=== PATIENT | male | born 1970 | race Two or more races ===

== ENCOUNTER 2018-08-12 06:56 | Emergency (ER) | payer MEDICAID, OTHER ==
[~2018-08-12] VITALS: Ht 167.6 cm; Wt 77.1 kg
[~2018-08-12 06:56] MED LIST: ACYCLOVIR10 GM MC; ACYCLOVIR200 MG ORAL; ACYCLOVIR800 MG ORAL; ARTIFICIAL TEAR15 ML BOTH EYES; CYCLOBENZAPRINE10 MG ORAL; PREDNISONE10 MG ORAL; PREDNISONE20 MG ORAL; TYLENOL650 MG/20. ORAL
[2018-08-12 06:59] VITALS: BP 139/95
[2018-08-12] MEDS ORDERED: NORVASC5 MG ORAL (07:03)
[2018-08-12] MEDS ORDERED: Ketorolac 60mg Inj IM ONE (07:15)
--- NOTE | 2018-08-12 07:18 | Emergency Room Report ---
History of Present Illness General Chief Complaint: Upper Extremity Injury Source: Patient Present Illness HPI Patient is a 47-year-old male presented after increased right-sided chest and upper extremity pain. Pain is worse with movement. He reports having some symptoms for several months however this is gotten worse since last night. Patient denies any fever. He reports having recent travel to [place]. Denies any changes with respiration. Patient states that he had been having some discomfort primarily to the dorsal aspect of his wrist forearm and shoulder. He denies any lower extremity pain. Reports having some pain to his neck as well as to his anterior chest. He patient is right-hand dominant. 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 Patient states is not a smoker. Allergies: Coded Allergies: No Known Allergies (Unverified , 05/13/16) Patient History Past Medical History: see triage record Reviewed Nursing Documentation: PMH: Agreed; PSxH: Agreed Nursing Documentation-PMH Past Medical History: No History, Except For Hx Hypertension: Yes Hx Cerebrovascular Accident: Yes - 2016 Review of Systems All Other Systems: negative except mentioned in HPI Physical Exam Vital Signs Date Time Temp Pulse Resp B/P (MAP) Pulse Ox O2 Delivery O2 Flow Rate FiO2 08/12/18 06:59 98.2 90 16 139/95 97 Room Air Sp02 EP Interpretation: reviewed, normal General Appearance: normal inspection, well appearing, no apparent distress, alert, GCS 15 Head: atraumatic ENT: normal ENT inspection, hearing grossly normal, normal voice Neck: normal inspection, full range of motion, supple, no bony tend Respiratory: normal inspection, lungs clear, normal breath sounds, no respiratory distress, no retraction, no wheezing Cardiovascular #1: regular rate, rhythm, no edema Gastrointestinal: normal inspection, normal bowel sounds, non tender, soft, no guarding, no hernia Genitourinary: no CVA tenderness Musculoskeletal: normal inspection, back normal, normal range of motion, other - right extensor forearm tenderness Neurologic: normal inspection, alert, responsive, speech normal Psychiatric: normal inspection, judgement/insight normal, mood/affect normal Skin: normal inspection, normal color, no rash Medical Decision Making Diagnostic Impression: Primary Impression: Cervical radiculopathy ER Course . Patient presented for right-sided upper extremity pain. Differential diagnosis include was not limited to fracture, dislocation, sprain, vascular insufficiency among others. Because of complexity of patient's case imaging studies were ordered. Patient was noted to have symptoms which are exacerbated by palpation. Patient shows no evidence of any neurologic deficit however given the patient's distribution of symptoms CT of the head and neck was ordered. CT of cervical spine read by radiology showed multilevel degenerative changes with mild stenosis CT of head read by radiology showed no evidence of acute intracranial pathology. Patient is given pain medications. He was advised to follow-up with his primary care physician for reevaluation and possible MRI. Patient does not show any evidence of vascular compromise and does not appear to have any evidence of myocardial infarction. EKG interpreted by me showed normal sinus rhythm without acute ST or T wave changes. EKG Diagnostic Results Rate: normal - 74 Rhythm: NSR ST Segments: no acute changes Last Vital Signs Date Time Temp Pulse Resp B/P (MAP) Pulse Ox O2 Delivery O2 Flow Rate FiO2 08/12/18 06:59 98.2 90 16 139/95 97 Room Air Status: improved Disposition: HOME, SELF-CARE Condition: Stable Scripts Cyclobenzaprine Hcl* (FLEXERIL*) 10 Mg Tablet 10 MG ORAL THREE TIMES A DAY, #20 TAB Prov: Geovanny August MD 08/12/18 Ibuprofen* (MOTRIN*) 600 Mg Tablet 600 MG ORAL Q8H PRN for For Pain, #30 TAB 0 Refills Prov: Geovanny August MD 08/12/18 Referrals: NON PHYSICIAN (PCP) Geovanny August MD Aug 12, 2018 07:18
--- NOTE | 2018-08-12 07:45 | NUR ---
ED Nurse Note: Pt. AAOx4. ambulatory. Pt. c/o R ar pain X 1 month and has gotten worse for the last 2 weeks. deniea any pain /trauma
--- NOTE | 2018-08-12 08:13 | NUR ---
ED Nurse Note: pt. taken to radiology
--- NOTE | 2018-08-12 08:20 | NUR ---
ED Nurse Note: pt. returned from radiology
--- NOTE | 2018-08-12 08:51 | Diagnostic Imaging Report ---
EXAM: CT Head Without Intravenous Contrast CLINICAL HISTORY: 47-year-old male with pain with numbness and tingling to right hand 4 weeks. TECHNIQUE: Axial computed tomography images of the head/brain without intravenous contrast. Coronal reformatted images were created and reviewed. CTDI is 70.38 mGy and DLP is 1242.15 mGy-cm. One or more of the following dose reduction techniques were used: automated exposure control, adjustment of the mA and/or kV according to patient size, use of iterative reconstruction technique. COMPARISON: 05/13/2016. FINDINGS: Brain: Unremarkable and unchanged. Ventricles: Unremarkable and stable. Bones/joints: Unremarkable. Soft tissues: Unremarkable. Sinuses: Unremarkable as visualized. Mastoid air cells: Unremarkable as visualized. IMPRESSION: Unremarkable and unchanged head CT.
--- NOTE | 2018-08-12 08:59 | Diagnostic Imaging Report ---
EXAM: CT Cervical Spine Without Intravenous Contrast CLINICAL HISTORY: 47-year-old male with pain with numbness/tingling to right hand 4 weeks. TECHNIQUE: Axial computed tomography images of the cervical spine without intravenous contrast. Coronal and sagittal reformatted images were created and reviewed. CTDI is 16.62 mGy and DLP is 319.76 mGy-cm. One or more of the following dose reduction techniques were used: automated exposure control, adjustment of the mA and/or kV according to patient size, use of iterative reconstruction technique. COMPARISON: None. FINDINGS: Vertebrae: No acute fracture or other osseous abnormality. Discs/spinal canal/neural foramina: Multilevel mild disc degeneration. Mild facet joint degeneration especially on the left at C2-3. Multilevel shallow midline dorsal disc bulges/protrusions, the largest at C6-7, likely resulting in mild canal stenosis. No obvious significant neural foraminal stenosis. Soft tissues: Grossly unremarkable. IMPRESSION: Multilevel mild disc degeneration, with associated shallow midline dorsal disc bulges/protrusions, greatest at C6-7, likely resulting in mild spinal canal stenosis; no obvious disc extrusion or significant foraminal stenosis/nerve root impingement, allowing for technique. If more sensitive imaging evaluation is desired, suggest MRI, if possible.
[2018-08-12] MEDS ORDERED: IBUPROFEN600 MG ORAL (09:25)
[2018-08-12] MEDS ORDERED: CYCLOBENZAPRINE10 MG ORAL (09:25)
[2018-08-12 09:30] VITALS: BP 139/95
--- NOTE | 2018-08-12 09:30 | NUR ---
ED Nurse Note: Patient is being discharged from medical care. Awake, alert and oriented x4. After care instructions were given. Patient verbalized understanding of After care instructions. All medical devices such as ID band were removed. Patient ambulated out with all personal belongings with steady gait.
--- NOTE | 2018-08-12 11:05 | Diagnostic Imaging Report ---
EXAM: XR Chest, 1 View CLINICAL HISTORY: PAIN TECHNIQUE: Frontal view of the chest. COMPARISON: Chest x-ray dated 05/13/16 FINDINGS: Lungs: Unremarkable. The lungs appear clear. No focal consolidation. Pleural space: Unremarkable. The costophrenic angles are sharp. No visible pneumothorax. Heart: Unremarkable. No cardiomegaly. Mediastinum: Unremarkable. Bones/joints: Unremarkable. IMPRESSION: No acute findings.
== END 2018-08-12 09:30 | disposition home or self-care (01) ==
LOC: EMR 07:15
DX: M54.12 Radiculopathy, cervical region (principal); I10 Essential (primary) hypertension; Z86.73 Personal history of transient ischemic attack (TIA), and cerebral infarction without residual deficits; R07.9 Chest pain, unspecified
CPT/HCPCS: 70450; 71045; 72125; 93005; 99284

== ENCOUNTER 2019-07-15 18:23 | Emergency (ER) | payer OTHER ==
[~2019-07-15] VITALS: Ht 160 cm; Wt 72.6 kg
[~2019-07-15 18:23] MED LIST changes: +IBUPROFEN600 MG ORAL; +NORVASC5 MG ORAL
[2019-07-15] MEDS ORDERED: NKM (18:32)
--- NOTE | 2019-07-15 18:42 | NUR ---
ED Nurse Note:pt. came s/p injury to lower back at work on monday, skin is intact, ambulatory with steady gait
[2019-07-15 18:58] VITALS: BP 146/87
--- NOTE | 2019-07-15 19:10 | NUR ---
ED Nurse Note: pt is at CT
--- NOTE | 2019-07-15 19:15 | NUR ---
ED Nurse Note: pt returned from CT
--- NOTE | 2019-07-15 19:27 | Diagnostic Imaging Report ---
Indications: Trauma, head pain Technique: Spiral acquisitions obtained through the brain. Angled axial and coronal 5 x 5 mm slices were reconstructed. Total dose length product 1300 mGycm. CTDI vol(s) 62 mGy. Dose reduction achieved using automated exposure control Comparison: 08/12/2018 Findings: No acute intracranial hemorrhage or edema. No mass effect nor midline shift. Normal size ventricles and extra axial CSF spaces. Normal brandon-white differentiation. Intact calvarium. Visualized orbits and sinuses are unremarkable. The mastoids are clear. There is no significant interim change Impression: Negative This agrees with the preliminary interpretation provided overnight by [facility] service. The CT scanner at [facility] is accredited by the [employer] and the scans are performed using protocols designed to limit radiation exposure to as low as reasonably achievable to attain images of sufficient resolution adequate for diagnostic evaluation.
--- NOTE | 2019-07-15 19:36 | Emergency Room Report ---
History of Present Illness General Chief Complaint: Lower Back Pain or Injury Source: Patient Present Illness HPI 48-year-old male with no significant past medical history here complaining of headache and dizziness and low back pain after falling at work. Patient reports that he missed a step and he landed on his back and back of his head. Denies loss of consciousness, nausea vomiting. Reports that the incident happened earlier this morning. Has not taken medication for symptom relief. Denies nausea vomiting abdominal pain, chest pain, shortness of breath, tingling and numbness. Rating the pain in head 7 out of 10 without radiation. Rating pain in the lower back 7 out of 10 without radiation, denying saddle paresthesia, urinary or bowel incontinence. Patient has full range of motion of his lower back. Allergies: Coded Allergies: No Known Allergies (Unverified , 05/13/16) Patient History Past Medical History: see triage record Past Surgical History: unable to obtain Pertinent Family History: none Immunizations: UTD Reviewed Nursing Documentation: PMH: Agreed; PSxH: Agreed Nursing Documentation-PMH Past Medical History: No History, Except For Hx Hypertension: Yes Hx Cerebrovascular Accident: Yes - 2017 Review of Systems All Other Systems: negative except mentioned in HPI Physical Exam Vital Signs Date Time Temp Pulse Resp B/P (MAP) Pulse Ox O2 Delivery O2 Flow Rate FiO2 07/15/19 18:24 98.4 73 17 146/87 (106) 98 Room Air Sp02 EP Interpretation: reviewed, normal General Appearance: no apparent distress, alert, GCS 15, non-toxic Head: normocephalic, atraumatic Eyes: bilateral eye normal inspection, bilateral eye PERRL ENT: hearing grossly normal, normal pharynx, no angioedema, normal voice Neck: full range of motion, supple, thyroid normal, no meningismus, no bony tend, no carotid bruits, supple/symm/no masses Respiratory: chest non-tender, lungs clear, normal breath sounds, no rhonchi, no retraction, no wheezing, speaking full sentences Cardiovascular #1: regular rate, rhythm, no edema, no murmur, normal capillary refill Cardiovascular #2: 2+ carotid (R), 2+ carotid (L), 2+ radial (R), 2+ radial (L) , 2+ dorsalis pedis (R), 2+ dorsalis pedis (L) Gastrointestinal: normal bowel sounds, non tender, soft, non-distended, no guarding, no rebound Rectal: deferred Genitourinary: no CVA tenderness Musculoskeletal: back normal, normal range of motion, no calf tenderness, pelvis stable, gait/station normal, non-tender Neurologic: alert, motor strength/tone normal, oriented x3, sensory intact, responsive, speech normal Psychiatric: judgement/insight normal, memory normal, mood/affect normal, no suicidal/homicidal ideation Skin: no rash Lymphatic: no adenopathy Medical Decision Making PA Attestation All diagnoses and treatment plans were reviewed and discussed with my supervising physician Dr. Plata Diagnostic Impression: Primary Impression: Head contusion Additional Impression: Lumbar contusion ER Course 48-year-old male with no significant past medical history here complaining of headache and dizziness and low back pain after falling at work. Patient reports that he missed a step and he landed on his back and back of his head. Denies loss of consciousness, nausea vomiting. Reports that the incident happened earlier this morning. Has not taken medication for symptom relief. Denies nausea vomiting abdominal pain, chest pain, shortness of breath, tingling and numbness. Rating the pain in head 7 out of 10 without radiation. Rating pain in the lower back 7 out of 10 without radiation, denying saddle paresthesia, urinary or bowel incontinence. Patient has full range of motion of his lower back. Ddx considered but are not limited to: cerebral hematoma, concussion, skull fracture, head contusion, lumbar fracture, lumbar contusion, lumbar sprain Vital signs: are WNL, pt. is afebrile H&PE are most consistent with: Head contusion, lumbar contusion ORDERS: head CT no contrast, L-spine x-ray, Motrin, Robaxin, lidocaine patch ED INTERVENTIONS: None required at this time. DISCHARGE: At this time pt. is stable for d/c to home. Will provide printed patient care instructions, and any necessary prescriptions. Care plan and follow up instructions have been discussed with the patient prior to discharge. Patient to follow-up with her primary care provider, if worsening symptoms return to the emergency room Other X-Ray Diagnostic Results Other X-Ray Diagnostic Results : X-Ray ordered: L-spine # of Views/Limited Vs Complete: 3 View Indication: Pain EP Interpretation: Yes PA Xray: Interpretation reviewed, by supervising MD, and agrees with findings. Interpretation: no dislocation, no soft tissue swelling, no fractures Impression: No acute disease Electronically Signed by: Uvaldo López PA-C CT/MRI/US Diagnostic Results CT/MRI/US Diagnostic Results : Imaging Test Ordered: Head CT no contrast Impression No intracranial bleed, no skull fracture Last Vital Signs Date Time Temp Pulse Resp B/P (MAP) Pulse Ox O2 Delivery O2 Flow Rate FiO2 07/15/19 18:58 98.4 17 146/87 98 Room Air 07/15/19 18:24 73 Disposition: HOME, SELF-CARE Condition: Stable Scripts Lidocaine Patch* (Lidoderm Patch*) 1 Each Adh..patch 1 PATCH TOPIC DAILY, #7 PATCH 0 Refills Patch(es) may remain in place for up to 12 hours in any 24-hour period. Prov: Uvaldo Marcial 07/15/19 Methocarbamol* (ROBAXIN-500*) 500 Mg Tablet 500 MG ORAL TID PRN for For Pain, #15 TAB 0 Refills Prov: Uvaldo Marcial 07/15/19 Ibuprofen* (MOTRIN*) 600 Mg Tablet 600 MG ORAL Q8H PRN for For Pain, #30 TAB 0 Refills Prov: Uvaldo Marcial 07/15/19 Patient Instructions: Facial or Scalp Contusion, [id number], Low Back Sprain With Rehab-Sports[facility] Additional Instructions: Take medication as directed, follow-up with your primary care provider, if worsening symptoms return to the emergency room Uvaldo Marcial Jul 15, 2019 19:36
[2019-07-15] MEDS ORDERED: IBUPROFEN600 MG ORAL (19:37)
[2019-07-15] MEDS ORDERED: ROBAXIN-500MG ORAL (19:37)
[2019-07-15] MEDS ORDERED: LIDODERM700 M1 TOPIC (19:37)
--- NOTE | 2019-07-15 19:40 | NUR ---
ER DISCHARGE NOTE: Patient is cleared to be discharged per ERMD, pt is aox4, on room air, with stable vital signs. pt was given dc and prescription instructions, pt was able to verbalize understanding, pt id band removed. pt is able to ambulate with steady gait. pt took all belongings.
[2019-07-15 19:42] VITALS: BP 135/86
--- NOTE | 2019-07-16 13:52 | Diagnostic Imaging Report ---
Indication: Trauma, pain Technique: 3 views of the lumbar spine Comparison: None Findings: Bony alignment is normal. Vertebral body heights are preserved. There is degenerative disc narrowing at L4-5 and L5-S1. There are anterior osteophytes at multiple levels. No acute fractures. No dislocations. Pedicles are intact. The sacral arches are preserved. Sacroiliac joint spaces are preserved. The soft tissues are unremarkable Impression: Mild degenerative changes, as described No acute bony trauma
== END 2019-07-15 19:40 | disposition home or self-care (01) ==
LOC: EMR 19:35
DX: S00.93XA Contusion of unspecified part of head, initial encounter (principal); S30.0XXA Contusion of lower back and pelvis, initial encounter; W19.XXXA Unspecified fall, initial encounter; Y92.9 Unspecified place or not applicable; Y99.0 Civilian activity done for income or pay; I10 Essential (primary) hypertension; Z86.73 Personal history of transient ischemic attack (TIA), and cerebral infarction without residual deficits
CPT/HCPCS: 70450; 72020; 99284

== ENCOUNTER 2019-10-23 14:03 | Outpatient (CLI) | payer OTHER ==
[~2019-10-23] VITALS: Ht 157.5 cm; Wt 76.7 kg
[~2019-10-23 14:03] MED LIST changes: +LIDODERM700 M1 TOPIC; +NKM; +ROBAXIN-500MG ORAL
[2019-10-23 14:23] VITALS: BP 131/83
--- NOTE | 2019-10-23 15:45 | Consultation ---
DATE OF CONSULTATION: 10/23/2019 CONSULTING PHYSICIAN: Ryne Thomason M.D. CHIEF COMPLAINT: Referral for screening colonoscopy. PAST MEDICAL HISTORY: Hypertension. PAST SURGICAL HISTORY: None. MEDICATIONS: Amlodipine. FAMILY HISTORY: Noncontributory. SOCIAL HISTORY: The patient drinks occasionally. Denies any drug abuse. No tobacco abuse. ALLERGIES: No known drug allergies. REVIEW OF SYSTEMS: Negative. PHYSICAL EXAMINATION: VITAL SIGNS: Temperature 99.2, blood pressure 131/83, pulse 88, and respirations 20. HEENT: Normocephalic and atraumatic. Sclerae anicteric. NECK: Supple. No evidence of obvious adenopathy. CARDIOVASCULAR: Regular rate and rhythm. Plus S1-S2. LUNGS: Clear to auscultation. ABDOMEN: Positive bowel sounds. Soft and nontender. No rebound. No peritoneal sign. EXTREMITIES: No cyanosis. No clubbing. No edema. ASSESSMENT AND PLAN: The patient is a 48-year-old male referred for screening colonoscopy, asymptomatic at this time. The patient was given instruction for colonoscopy. Risks and benefits of procedure was explained to him. He was given the prep. We are going to go ahead and schedule him when authorization is obtained. Ryne Thomason M.D. DR: JANET JOB#: [id number] CC:
== END 2019-10-23 15:52 | disposition home or self-care (01) ==
LOC: PAN 14:03
DX: Z00.00 Encounter for general adult medical examination without abnormal findings (principal); I10 Essential (primary) hypertension; Z79.899 Other long term (current) drug therapy
CPT/HCPCS: G0463